=== PATIENT | male | born 1965 | race Asian ===

== ENCOUNTER → 2017-05-02 | Outpatient (CLI) | payer MEDICAID ==
[~2017-05-02] MED LIST: ALLERGY MED; BP MED; CHOLESTROL; DIPH25CA61 PO; HYDR25TA6 PO; IBUP200C5 PO; ISOS30TA8 PO; MELO7.5T31 PO; METO25TA91 PO; OMEP-110 PO; PAIN MED; SIMV10TA3 PO; TICA90TA PO; TRIA15CR2 TP
== END ==
LOC: CFH 07:59
PROVIDERS: ATTEND Internal Medicine Cardiovascular Disease
DX: I25.10 Atherosclerotic heart disease of native coronary artery without angina pectoris (principal)
CPT/HCPCS: 78452; 93017; A9502

== ENCOUNTER → 2019-10-23 | Outpatient (CLI) | payer MEDICAID ==
[~2019-10-23] MED LIST changes: +IBUP-1623 PO; -IBUP200C5 PO; +SIMV10TA18 PO; -SIMV10TA3 PO
== END | disposition home or self-care (01) ==
LOC: CFH 07:35
PROVIDERS: ATTEND Internal Medicine Cardiovascular Disease
DX: I25.10 Atherosclerotic heart disease of native coronary artery without angina pectoris (principal); I10 Essential (primary) hypertension
CPT/HCPCS: 78452; 93017; A9502

== ENCOUNTER → 2019-11-11 | Outpatient (CLI) | payer MEDICAID | END | disposition home or self-care (01) | LOC: CFH 06:43 | PROVIDERS: ATTEND Internal Medicine Cardiovascular Disease | DX: I25.10 Atherosclerotic heart disease of native coronary artery without angina pectoris (principal); I10 Essential (primary) hypertension; E78.5 Hyperlipidemia, unspecified | CPT/HCPCS: 93306 ==